=== PATIENT | male | born 1985 | race American Indian/Alaskan Native ===

== ENCOUNTER → 2025-04-21 | Outpatient (CLI) | payer MEDICAID, SELFPAY ==
--- NOTE | 2025-04-21 12:42 | XR_ITS ---
Examination: Wrist, left 3 views Technique: Wrist AP, oblique, lateral 3 views Date and time of exam: April 21, 2025 1537 hours INDICATIONS: Injury to the wrist one month ago wrist pain. FINDINGS: No fracture or dislocation. No foreign body IMPRESSION: No fracture or dislocation.
--- NOTE | 2025-04-21 12:42 | XR_ITS ---
Examination: First digit left hand 2 views TECHNIQUE: AP lateral left hand first digit 2 views Date and time: April 21, 2025 1346 hours INDICATIONS: Injury to the first digit one month ago, first digit pain. FINDINGS: No fracture or dislocation. No foreign body IMPRESSION: No fracture or dislocation
--- NOTE | 2025-04-21 12:42 | XR_ITS ---
Examination: Hand, left 3 views Technique: Hand AP, oblique, lateral 3 views Date and time of exam: April 21, 2025 1337 hours INDICATIONS: Injured the hand one month ago, hand pain. FINDINGS: Mild osteopenia. No fracture No erosive arthritis No opaque foreign body IMPRESSION: No fractures. No erosive or other significant arthritic change
== END | disposition home or self-care (01) ==
PROVIDERS: PCP Nurse Practitioner Family; Referring Provider Nurse Practitioner Family; Visit Provider Nurse Practitioner Family
DX: M79.89 Other specified soft tissue disorders (principal); S69.92XA Unspecified injury of left wrist, hand and finger(s), initial encounter
CPT/HCPCS: 73110; 73130; 73140